=== PATIENT | male | born 1940 | race Caucasian/White ===

== ENCOUNTER 2016-09-07 09:54 | Inpatient (IN) | payer OTHER ==
[~2016-09-07] VITALS: Ht 172.7 cm; Wt 85.5 kg
[~2016-09-07 09:54] MED LIST: ALBU2.5V NPPB; ALBU2.5V11 NPPB; ALBU8.5H3 INH; AMLO10TA2 PO; BP med PO; BUSP5TAB2 PO; FLUT1DIS3 INH; FURO-92 PO; GUAI100G2 PO; GUAI600T53 PO; LEVO500T33 PO; LEVO750T26 PO; LEVO750T6 PO; LORA0.5T PO; OXYC10TA32 PO; OXYC5TAB3 PO; POTA20PA8 PO; PRED10TA PO; PRED20TA PO; PRED5TAB PO; TIOT18CA INH
[2016-09-07] MEDS ORDERED: POLYTRIM OPHTH 10ML EACHEYE ONE (11:15)
[2016-09-07] MEDS ORDERED: ALBUTEROL/IPRATROPIUM 2.5MG/0.5MG, 3 ML ONE (11:29)
[2016-09-07] MEDS ORDERED: ALBUTEROL/IPRATROPIUM 2.5MG/0.5MG, 3 ML NPPB SCH (11:30)
[2016-09-07 14:01] LABS: BLOOD UREA NITROGEN 21 mg/dL (7-18)
[2016-09-07] MEDS ORDERED: TEMAZEPAM 15 MG CAPSULE PO PRN (16:30)
[2016-09-07 16:42] VITALS: BP 117/72
[2016-09-07 19:06] VITALS: BP 118/78
[2016-09-07] MEDS: DOXYCYCLINE 100 MG in DEXTROSE 5% 250 ML IV SCH (20:01)
[2016-09-07] MEDS: methylPREDNISolone SOD SUCC 40 MG/ML IV SCH (20:01)
[2016-09-07] MEDS: ENOXAPARIN 40 MG/0.4 ML SQ SCH (20:01)
[2016-09-07] MEDS ORDERED: HYDROcodone/APAP 5/325 TABLET PO ONE (22:00)
[2016-09-08 00:51] VITALS: BP 135/78
[2016-09-08 03:54] LABS: BLOOD UREA NITROGEN 23 mg/dL (7-18)
[2016-09-08] MEDS: methylPREDNISolone SOD SUCC 40 MG/ML IV SCH (04:02)
[2016-09-08 08:25] VITALS: BP 137/87
[2016-09-08] MEDS: DOXYCYCLINE 100 MG in DEXTROSE 5% 250 ML IV SCH ×2 (08:58→19:54)
[2016-09-08] MEDS ORDERED: SODIUM CHLORIDE 0.9% 1,000 ML IV SCH (11:00)
[2016-09-08] MEDS: GUAIFENESIN ER 600 MG TABLET PO SCH ×2 (11:23→19:54)
[2016-09-08 14:00] VITALS: BP 154/91
[2016-09-08] MEDS ORDERED: ALBUTEROL/IPRATROPIUM 2.5MG/0.5MG, 3 ML ONE (14:07)
[2016-09-08] MEDS: ALBUTEROL/IPRATROPIUM 2.5MG/0.5MG, 3 ML NPPB SCH ×3 (14:15→22:00)
[2016-09-08 18:52] VITALS: BP 127/77
[2016-09-08] MEDS: ENOXAPARIN 40 MG/0.4 ML SQ SCH (19:54)
[2016-09-08] MEDS ORDERED: methylPREDNISolone SOD SUCC 40 MG/ML IV SCH (21:00)
[2016-09-08] MEDS: ACETAMINOPHEN 325 MG TABLET PO PRN (23:19)
[2016-09-09 01:19] VITALS: BP 143/83
[2016-09-09 05:50] LABS: BLOOD UREA NITROGEN 25 mg/dL (7-18)
[2016-09-09 07:17] VITALS: BP 151/88
[2016-09-09] MEDS: ALBUTEROL/IPRATROPIUM 2.5MG/0.5MG, 3 ML NPPB SCH ×3 (08:15→21:10)
[2016-09-09] MEDS: DOXYCYCLINE 100 MG in DEXTROSE 5% 250 ML IV SCH ×2 (08:42→19:51)
[2016-09-09] MEDS: GUAIFENESIN ER 600 MG TABLET PO SCH ×2 (08:42→19:51)
[2016-09-09] MEDS: FLUTICASONE/VILANTEROL 100-25MCG/INH INH SCH (09:40)
[2016-09-09 13:57] VITALS: BP 145/82
[2016-09-09] MEDS ORDERED: ALBUTEROL/IPRATROPIUM 2.5MG/0.5MG, 3 ML ONE (14:24)
[2016-09-09] MEDS: ACETAMINOPHEN 325 MG TABLET PO PRN (19:51)
[2016-09-09] MEDS: ENOXAPARIN 40 MG/0.4 ML SQ SCH (19:51)
[2016-09-09 20:40] VITALS: BP 142/76
[2016-09-10 02:18] VITALS: BP 123/77
[2016-09-10] MEDS: ALBUTEROL/IPRATROPIUM 2.5MG/0.5MG, 3 ML NPPB SCH ×2 (06:50→09:57)
[2016-09-10 07:35] VITALS: BP 144/81
[2016-09-10] MEDS: GUAIFENESIN ER 600 MG TABLET PO SCH (08:12)
[2016-09-10] MEDS: FLUTICASONE/VILANTEROL 100-25MCG/INH INH SCH (08:12)
[2016-09-10] MEDS: DOXYCYCLINE 100 MG in DEXTROSE 5% 250 ML IV SCH (08:12)
[2016-09-10] MEDS ORDERED: DOXY100T PO (08:17)
[2016-09-10] MEDS ORDERED: PRED20TA PO (08:17)
[2016-09-10] MEDS ORDERED: GUAI600T22 PO (08:17)
[2016-09-10] MEDS ORDERED: FLUT1AER INH (08:17)
[2016-09-10] MEDS ORDERED: ALBU18HF INH (08:30)
[2016-09-10] MEDS ORDERED: TIOT18CA INH (08:35)
[2016-09-10] MEDS ORDERED: ALBU2.5V NPPB (08:35)
== END 2016-09-10 11:05 | disposition home health service (06) | DRG 682 ==
LOC: ED 11:37 → EDIP 15:17 → 3NE 16:24 → DCLOUNGE 09-10 11:04
PROVIDERS: ADMIT Internal Medicine; ATTEND Internal Medicine
DX: N17.0 Acute kidney failure with tubular necrosis (principal); J96.20 Acute and chronic respiratory failure, unspecified whether with hypoxia or hypercapnia; J44.1 Chronic obstructive pulmonary disease with (acute) exacerbation; I11.9 Hypertensive heart disease without heart failure; H10.9 Unspecified conjunctivitis; Z88.5 Allergy status to narcotic agent; R73.9 Hyperglycemia, unspecified
CPT/HCPCS: 36415; 70450; 71010; 80048; 81001; 82040; 83605; 83735; 85025; 87040; 87086; 93005; 94640; 99285; J1650; J7060; J7620; J2920; J7030; J7512